=== PATIENT | male | born 1985 | race Caucasian/White ===

== ENCOUNTER → 2016-10-08 | Outpatient (REF) | payer OTHER ==
[2016-10-08 09:54] LABS: NON PROGRESSIVE MOTILITY (c) 27 %; PROGRESSIVE MOTILITY (a) 16 % (>=32); SPERM ABNORMAL FORMS WBC'S NOTED; TOTAL MOTILITY 43 % (>=40)
[2016-10-08 09:55] LABS: % NORMAL FORMS 4 % (>=4); IMMOTILITY 57 %; SPERM# 42.3 M/Ejac (33-46); TOTAL FUNCTIONAL 0.6 M/Ejac.; TOTAL PROGRESSIVE SPERM 6.9 M/Ejac.
== END ==
LOC: M SMT 09:36
PROVIDERS: ATTEND Urology
DX: E29.1 Testicular hypofunction (principal)

== ENCOUNTER → 2016-10-08 | Outpatient (CLI) | payer OTHER | LOC: M LAB 09:42 | PROVIDERS: ATTEND Urology | DX: E29.1 Testicular hypofunction (principal) ==

== ENCOUNTER → 2017-01-06 | Outpatient (CLI) | payer OTHER | LOC: M LAB 09:26 | PROVIDERS: ATTEND Urology | DX: E29.1 Testicular hypofunction (principal) ==

== ENCOUNTER → 2017-01-06 | Outpatient (REF) | payer OTHER ==
[2017-01-06 10:36] LABS: % NORMAL FORMS 6 % (>=4); IMMOTILITY 54 %; NON PROGRESSIVE MOTILITY (c) 18 %; PROGRESSIVE MOTILITY (a) 28 % (>=32); SPERM# 90.9 M/Ejac (33-46); TOTAL FUNCTIONAL 3.6 M/Ejac.; TOTAL MOTILITY 46 % (>=40); TOTAL PROGRESSIVE SPERM 25.5 M/Ejac.
== END ==
LOC: M SMT 09:21
PROVIDERS: ATTEND Urology
DX: E29.1 Testicular hypofunction (principal)

== ENCOUNTER → 2017-04-07 | Outpatient (CLI) | payer OTHER | LOC: M LAB 08:55 | PROVIDERS: ATTEND Urology | DX: N46.11 Organic oligospermia (principal) ==

== ENCOUNTER → 2017-04-07 | Outpatient (REF) | payer OTHER ==
[2017-04-07 09:47] LABS: % NORMAL FORMS < 4 % (>=4); IMMOTILITY 58 %; NON PROGRESSIVE MOTILITY (c) 28 %; PROGRESSIVE MOTILITY (a) 14 % (>=32); SPERM ABNORMAL FORMS WBC'S NOTED; SPERM# 88.2 M/Ejac (>=39); TOTAL FUNCTIONAL 0.9 M/Ejac.; TOTAL MOTILITY 42 % (>=40)
== END ==
LOC: M SMT 09:14
PROVIDERS: ATTEND Urology
DX: N46.11 Organic oligospermia (principal)

== ENCOUNTER → 2017-07-21 | Outpatient (CLI) | payer OTHER ==
[2017-07-21 09:27] LABS: NON PROGRESSIVE MOTILITY (c) 4 %; PROGRESSIVE MOTILITY (a) 3 % (>=32); TOTAL MOTILITY 7 % (>=40)
[2017-07-21 09:28] LABS: % NORMAL FORMS < 4 % (>=4); IMMOTILITY 93 %; SPERM# 527.1 M/Ejac (>=39); TOTAL FUNCTIONAL 0.9 M/Ejac.; TOTAL PROGRESSIVE SPERM 17.5 M/Ejac.
== END ==
LOC: M LAB 08:30
PROVIDERS: ATTEND Urology
DX: E29.1 Testicular hypofunction (principal)

== ENCOUNTER → 2018-01-02 | Outpatient (REF) | payer OTHER ==
[2018-01-02 10:57] LABS: IMMOTILITY 95 %; NON PROGRESSIVE MOTILITY (c) 3 %; PROGRESSIVE MOTILITY (a) 2 % (>=32); SEMEN APPEARANCE OPAQUE (OPAQUE); SEMEN VISCOSITY LIQUID (LIQUID); SEMEN VOLUME 3.5 ml (4.0-5.0); SPERM ABNORMAL FORMS WBC'S NOTED; SPERM CONCENTRATION 75.5 M/ml (>=15.0); TOTAL MOTILITY 5 % (>=40); WBC CONCENTRATION <=1 M/ml (<=1 M/ml)
[2018-01-02 10:58] LABS: % NORMAL FORMS 32 % (>=4); SPERM# 264.3 M/Ejac (>=39); TOTAL FUNCTIONAL 0.2 M/Ejac.; TOTAL PROGRESSIVE SPERM 4.2 M/Ejac.
== END ==
LOC: M SMT 10:32
DX: N46.11 Organic oligospermia (principal); I86.1 Scrotal varices
CPT/HCPCS: 89320

== ENCOUNTER → 2018-03-31 | Outpatient (REF) | payer OTHER ==
[2018-03-31 09:29] LABS: PROGRESSIVE MOTILITY (a) 8 % (>=32); SEMEN APPEARANCE OPAQUE (OPAQUE); SEMEN VISCOSITY LIQUID (LIQUID); SEMEN VOLUME 3.5 ml (4.0-5.0); SEMEN pH 8.5 (7.0-8.0); SPERM CONCENTRATION 107.1 M/ml (>=15.0); WBC CONCENTRATION <=1 M/ml (<=1 M/ml)
[2018-03-31 09:30] LABS: % NORMAL FORMS < 4 % (>=4); IMMOTILITY 86 %; NON PROGRESSIVE MOTILITY (c) 6 %; SPERM# 374.8 M/Ejac (>=39); TOTAL FUNCTIONAL 2.3 M/Ejac.; TOTAL MOTILITY 14 % (>=40); TOTAL PROGRESSIVE SPERM 30.3 M/Ejac.
== END ==
LOC: M SMT 09:13
DX: N46.11 Organic oligospermia (principal)

== ENCOUNTER → 2018-07-05 | Outpatient (CLI) | payer OTHER ==
[2018-07-07 00:56] LABS: TESTOSTERONE FREE (DIRECT) 12.2 pg/mL (8.7-25.1)
== END ==
LOC: M LAB 09:58
DX: E29.1 Testicular hypofunction (principal)
CPT/HCPCS: 84403

== ENCOUNTER → 2018-07-05 | Outpatient (REF) | payer OTHER ==
[2018-07-05 11:07] LABS: IMMOTILITY 82 %; NON PROGRESSIVE MOTILITY (c) 7 %; PROGRESSIVE MOTILITY (a) 11 % (>=32); SEMEN APPEARANCE OPAQUE (OPAQUE); SEMEN VISCOSITY VISCOUS (LIQUID); SEMEN VOLUME 3.8 ml (4.0-5.0); SEMEN pH 8.5 (7.0-8.0); SPERM CONCENTRATION 59.2 M/ml (>=15.0); TOTAL MOTILITY 18 % (>=40); WBC CONCENTRATION <=1 M/ml (<=1 M/ml)
[2018-07-05 11:08] LABS: % NORMAL FORMS < 4 % (>=4); TOTAL FUNCTIONAL 1.8 M/Ejac.; TOTAL PROGRESSIVE SPERM 23.6 M/Ejac.
== END ==
LOC: M LAB REF 10:48
DX: I86.1 Scrotal varices (principal); R86.8 Other abnormal findings in specimens from male genital organs

== ENCOUNTER → 2020-02-19 | Outpatient (CLI) | payer OTHER ==
[~2020-02-19] MED LIST: ANAS1TAB2 PO; BACT800T5 PO; CLOM50TA9 PO; TYLE650T35 PO
--- NOTE | 2020-02-19 09:25 | REP ---
SCROTAL SONOGRAPHY: HISTORY: Testicular pain. FINDINGS: High-resolution bilateral scrotal sonography demonstrates homogeneous testicular parenchyma bilaterally. No intratesticular mass lesion is seen. There is a moderate-sized hydrocele on the left. Right testicular dimensions are 2.8 x 3.9 x 3.1 cm. Left testis measures 5.2 x 2.6 x 3.3 cm. Doppler flow is present in both testes. Resistive indices are measured at 0.65 on the right and 0.66 on the left. Right epididymis is normal. The left epididymis could not be visualized due to the moderate hydrocele. IMPRESSION: Moderate left-sided hydrocele. No intratesticular mass lesion. Normal testicular Doppler flow.
== END ==
LOC: M PLAIMG 08:02
PROVIDERS: ATTEND Nurse Practitioner Women's Health
DX: N50.819 Testicular pain, unspecified (principal); N43.3 Hydrocele, unspecified